=== PATIENT | female | born 1995 | race Caucasian/White ===

== ENCOUNTER 2018-11-30 20:22 | Emergency (ER) | payer MEDICAID ==
[2018-12-01] MEDS ORDERED: LIDOCAINE 2% VISCOUS SOLN 20 ML UDCUP PO ONE (01:25)
--- NOTE | 2018-12-01 01:32 | ER Document Report ---
HPI - HPI Patient complains to provider of: tooth pain Time Seen by Provider: 12/01/18 01:11 Context: 23-year-old well-appearing female presents with a broken tooth that occurred at 7 PM after a [place] rancher stuck to her molar and she attempted to pull it off with her nail. The corner of the tooth broke and she cannot pull it out which is causing face pain, mouth pain ear pain and a headache. Patient denies fever, chills, nausea, vomiting, diarrhea, any infectious symptoms. Patient denies shortness of breath or chest pain, abdominal pain. No other complaints. - REPRODUCTIVE Reproductive: DENIES: : Past Medical History - Social History Smoking Status: Never Smoker Family History: Reviewed & Not Pertinent - Immunizations Immunizations up to date: Yes Hx Diphtheria, Pertussis, Tetanus Vaccination: No Vertical Provider Document - CONSTITUTIONAL Agree With Documented VS: Yes - INFECTION CONTROL TRAVEL OUTSIDE OF THE [place] IN LAST 30 DAYS: No - HEENT Mouth Diagram: 1 - cracked #30 mesiolingual cusp, no purulent discharge or gingival erythema. Cusp is mobile but nondisplaced Course - Re-evaluation Re-evalutation: 12/01/18 01:29 Well-appearing female in no distress with a cracked #30 mesiolingual cusp. Plan is to give her viscous lidocaine with follow-up to the free clinic for extraction in the morning. Tooth is nondisplaced and stable. 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 Will give patient information for free dental clinic for potential extraction. Safe and stable for discharge with Xylocaine - Vital Signs Vital signs: Temp Pulse Resp BP Pulse Ox 98.3 F 69 16 122/69 99 11/30/18 20:45 11/30/18 20:45 11/30/18 20:45 11/30/18 20:45 11/30/18 20:45 Discharge - Discharge Clinical Impression: Cracked tooth Condition: Good Disposition: HOME, SELF-CARE Instructions: Toothache (OM), [facility] Additional Instructions: You were seen in the emergency department for a cracked tooth. Is important a follow-up with dental for extraction or crown. I have given you the information for the [facility] which is a [facility]. I also wrote down the number for [facility]. If you develop high fever, inability to swallow, unable to open your jaw, or have any other problems please merely return to the emergency department.
[2018-12-01 02:54] VITALS: BP 126/65
== END 2018-12-01 02:30 | disposition home or self-care (01) ==
LOC: ER 20:22
DX: K03.81 Cracked tooth (principal); K08.89 Other specified disorders of teeth and supporting structures
CPT/HCPCS: 99282; J3490